=== PATIENT | male | born 1955 | race Caucasian/White ===

== ENCOUNTER 2021-01-02 12:29 | Inpatient (IN) | payer OTHER ==
[2021-01-02] MEDS ORDERED: SODIUM CHLORIDE 0.9% 500 ML INFUS.BAG IV ONE (13:02)
[2021-01-02] MEDS ORDERED: FOLIC ACID 1 MG TABLET (FP) PO ONE (13:03)
[2021-01-02] MEDS ORDERED: THIAMINE HCL 200 MG/2 ML VIAL IVPB ONE (13:03)
[2021-01-02 13:42] LABS: PH,URINE 6.5 (5.0-8.0); URINE APPEARANCE CLEAR; URINE BILIRUBIN NEGATIVE (NEGATIVE); URINE COLOR YELLOW; URINE GLUCOSE (UA) NEGATIVE (NEGATIVE); URINE KETONE NEGATIVE (NEGATIVE); URINE LEUK ESTERASE NEGATIVE (NEGATIVE); URINE NITRITE NEGATIVE (NEGATIVE); URINE PROTEIN NEGATIVE (NEGATIVE); URINE UROBILINOGEN 0.2 mg/dL (0.2-1.0)
[2021-01-02] MEDS ORDERED: DALBAVANCIN HCL 1,500 MG in DEXTROSE 5%-WATER - 500 ML IVPB ONE (13:54)
[2021-01-02] MEDS ORDERED: FOLIC ACID INJECTION - 1 MG, THIAMINE HCL 100 MG, MULTIVIT INJECTION ADULT 10 ML in SOD... IVPB ONE (13:54)
[2021-01-02 14:01] LABS: BASO % 0.5 % (0-2.0); EOS % 1.3 % (0-4.5); HEMOGLOBIN 13.6 GM/dL (11.7-16.9); LYMPH % 14.2 % (8-40); MCH 28.3 pg (25.7-33.7); MEAN CELL VOLUME 83.2 fl (80-96); MEAN PLT VOLUME 6.7 fl (7.5-11.1); MONO % 5.9 % (3.8-10.2); NEUT % 78.1 % (42.8-82.8); PLATELET COUNT 237 K/MM3 (134-434); RBC 4.81 M/mm3 (4.00-5.60); RDW 13.8 % (11.9-15.9); WHITE BLOOD COUNT 10.2 K/mm3 (4.0-10.0)
[2021-01-02 14:09] LABS: INR 0.91 (0.83-1.09)
[2021-01-02 14:12] LABS: ACTIVATED PTT 27.6 SECONDS (25.2-36.5)
[2021-01-02 14:19] LABS: ALBUMIN 3.4 g/dl (3.4-5.0); BLOOD UREA NITROGEN 7.1 mg/dL (7-18); MAGNESIUM 2.2 mg/dL (1.8-2.4)
[2021-01-02 14:22] LABS: CREATININE 0.8 mg/dL (0.55-1.3)
[2021-01-02 14:23] LABS: BILIRUBIN,TOTAL 0.7 mg/dL (0.2-1)
[2021-01-02 14:24] LABS: TOT PROT 6.6 g/dl (6.4-8.2)
[2021-01-02] MEDS ORDERED: DALBAVANCIN HCL 500 MG VIAL (RESTRICTED TO ID ONLY) IVPB ONE (14:25)
[2021-01-02] MEDS ORDERED: HALOPERIDOL LACTATE 5 MG/ML IM ONE (15:15)
[2021-01-02] MEDS ORDERED: HALOPERIDOL LACTATE 5 MG/ML ONE (15:15)
[2021-01-02] MEDS ORDERED: chlordiazePOXIDE HCL 25 MG CAPSULE PO ONE (15:18)
[2021-01-02] MEDS ORDERED: DIPHTH,PERTUSS(ACELL),TET 0.5 ML DISP.SYRIN IM ONE (15:21)
[2021-01-02] MEDS ORDERED: chlordiazePOXIDE HCL 25 MG CAPSULE ONE ×2 (15:28→22:28)
[2021-01-02] MEDS: chlordiazePOXIDE HCL 25 MG CAPSULE PO SCH (22:35)
[2021-01-03] MEDS: chlordiazePOXIDE HCL 25 MG CAPSULE PO SCH ×4 (06:13→19:05)
[2021-01-03] MEDS ORDERED: chlordiazePOXIDE HCL 25 MG CAPSULE ONE ×3 (06:14→12:30)
[2021-01-03] MEDS: INSULIN SLIDING SCALE (NOVOLOG) 1 VIAL SQ SCH ×4 (07:20→22:53)
[2021-01-03 07:57] LABS: HEMATOCRIT 42.3 % (35.4-49); HEMOGLOBIN 14.3 GM/dL (11.7-16.9); MCH 28.5 pg (25.7-33.7); MCHC 33.9 g/dl (32.0-35.9); MEAN CELL VOLUME 84.2 fl (80-96); MEAN PLT VOLUME 7.3 fl (7.5-11.1); PLATELET COUNT 202 K/MM3 (134-434); RBC 5.03 M/mm3 (4.00-5.60); WHITE BLOOD COUNT 10.3 K/mm3 (4.0-10.0)
[2021-01-03 08:18] LABS: CHLORIDE 103 mmol/L (98-107); SODIUM 137 mmol/L (136-145)
[2021-01-03 08:22] LABS: ALBUMIN 3.4 g/dl (3.4-5.0); BLOOD UREA NITROGEN 8.5 mg/dL (7-18); GLUCOSE,RANDOM 120 mg/dL (74-106)
[2021-01-03 08:24] LABS: ANION GAP 7 MMOL/L (8-16); CALCIUM 8.3 mg/dL (8.5-10.1); CO2 28 mmol/L (21-32); MAGNESIUM 2.1 mg/dL (1.8-2.4)
[2021-01-03 08:26] LABS: BILIRUBIN,TOTAL 1.1 mg/dL (0.2-1); CREATININE 0.8 mg/dL (0.55-1.3); PHOSPHOROUS 2.9 mg/dL (2.5-4.9); SGOT/AST 32 U/L (15-37); SGPT/ALT 38 U/L (13-61); TOT PROT 6.6 g/dl (6.4-8.2)
[2021-01-03] MEDS: chlordiazePOXIDE HCL 25 MG CAPSULE PO PRN ×2 (08:26→12:30)
[2021-01-03 08:28] LABS: ALK PHOS 155 U/L (45-117)
[2021-01-03] MEDS ORDERED: buPROPion HCL 100 MG TABLET ONE (09:03)
[2021-01-03] MEDS ORDERED: FOLIC ACID 1 MG TABLET (FP) ONE (09:03)
[2021-01-03] MEDS ORDERED: ENOXAPARIN NA (PORCINE) 40 MG/0.4 ML DISP.SYRIN SQ ONE (09:04)
[2021-01-03] MEDS ORDERED: PARoxetine HCL 10 MG TABLET ONE (09:04)
[2021-01-03] MEDS ORDERED: FOLIC ACID 1 MG TABLET (FP) PO SCH (10:00)
[2021-01-03] MEDS ORDERED: ENOXAPARIN NA (PORCINE) 40 MG/0.4 ML DISP.SYRIN SQ SCH (10:00)
[2021-01-03] MEDS ORDERED: PARoxetine HCL 20 MG TABLET PO SCH (10:00)
[2021-01-03] MEDS ORDERED: PATIENT'S OWN MEDICATION (NON-FORMULARY) (Lisinopril/Hydrochlorothiazide [Lisinopril-Hctz PO SCH (12:45)
[2021-01-03] MEDS ORDERED: HYDROCHLOROTHIAZIDE 12.5 MG CAPSULE (FP) PO SCH (12:45)
[2021-01-03] MEDS ORDERED: LISINOPRIL 10 MG TABLET PO SCH (12:45)
[2021-01-03] MEDS ORDERED: HYDROCHLOROTHIAZIDE 25 MG TABLET (FP) ONE (12:52)
[2021-01-03] MEDS ORDERED: LISINOPRIL 5 MG TABLET ONE (12:53)
[2021-01-03] MEDS: THIAMINE HCL 200 MG/2 ML VIAL IVPB SCH ×3 (14:33→22:19)
[2021-01-03] MEDS ORDERED: THIAMINE HCL 200 MG/2 ML VIAL ONE (14:34)
[2021-01-03] MEDS ORDERED: chlordiazePOXIDE HCL 25 MG CAPSULE PO PRN (19:39)
[2021-01-03] MEDS: MULTIVITAMINS (DAILY MVI) TABLET (FP) PO SCH (22:19)
[2021-01-03] MEDS: ACETAMINOPHEN 325 MG TABLET (FP) PO PRN (22:20)
[2021-01-03] MEDS ORDERED: chlordiazePOXIDE HCL 25 MG CAPSULE PO SCH (23:00)
[2021-01-04] MEDS: THIAMINE HCL 200 MG/2 ML VIAL IVPB SCH ×3 (00:48→13:48)
[2021-01-04] MEDS ORDERED: chlordiazePOXIDE HCL 25 MG CAPSULE PO SCH (05:00)
[2021-01-04] MEDS: chlordiazePOXIDE HCL 25 MG CAPSULE PO SCH ×3 (05:37→17:34)
[2021-01-04] MEDS: INSULIN SLIDING SCALE (NOVOLOG) 1 VIAL SQ SCH ×3 (06:12→17:51)
[2021-01-04 07:49] VITALS: BMI 12.2
[2021-01-04 08:58] LABS: HEMATOCRIT 40.7 % (35.4-49); MCH 29.1 pg (25.7-33.7); MCHC 34.3 g/dl (32.0-35.9); MEAN CELL VOLUME 84.9 fl (80-96); MEAN PLT VOLUME 7.6 fl (7.5-11.1); PLATELET COUNT 197 K/MM3 (134-434); RDW 13.6 % (11.9-15.9); WHITE BLOOD COUNT 7.4 K/mm3 (4.0-10.0)
[2021-01-04 09:05] LABS: ALBUMIN 3.4 g/dl (3.4-5.0); CALCIUM 8.4 mg/dL (8.5-10.1); MAGNESIUM 2.1 mg/dL (1.8-2.4)
[2021-01-04 09:08] LABS: PHOSPHOROUS 3.8 mg/dL (2.5-4.9)
[2021-01-04 09:10] LABS: BILIRUBIN,TOTAL 1.4 mg/dL (0.2-1); TOT PROT 6.7 g/dl (6.4-8.2)
[2021-01-04] MEDS: MULTIVITAMINS (DAILY MVI) TABLET (FP) PO SCH (09:27)
[2021-01-04] MEDS: ACETAMINOPHEN 325 MG TABLET (FP) PO PRN ×2 (09:27→15:40)
[2021-01-04] MEDS ORDERED: ENOXAPARIN NA (PORCINE) 40 MG/0.4 ML DISP.SYRIN SQ SCH (10:00)
[2021-01-04] MEDS ORDERED: PARoxetine HCL 20 MG TABLET PO SCH (10:00)
[2021-01-04] MEDS ORDERED: HYDROCHLOROTHIAZIDE 12.5 MG CAPSULE (FP) PO SCH (10:00)
[2021-01-04] MEDS ORDERED: FOLIC ACID 1 MG TABLET (FP) PO SCH (10:00)
[2021-01-04] MEDS ORDERED: LISINOPRIL 10 MG TABLET PO SCH (10:00)
[2021-01-04 10:19] VITALS: BP 130/52; PULSE 99; TEMP 98
[2021-01-04] MEDS ORDERED: INSULIN (NOVOLOG) ASPART 100 UNITS/ML 10ML VIAL ONE (11:09)
[2021-01-05] MEDS ORDERED: chlordiazePOXIDE HCL 10 MG CAPSULE PO PRN ×2
[2021-01-05] MEDS ORDERED: chlordiazePOXIDE HCL 10 MG CAPSULE PO SCH ×2 (05:00)
[2021-01-06] MEDS ORDERED: chlordiazePOXIDE HCL 10 MG CAPSULE PO SCH ×2 (05:00)
[2021-01-07] MEDS ORDERED: chlordiazePOXIDE HCL 10 MG CAPSULE PO ONE ×2 (05:00)
== END 2021-01-04 18:23 | disposition other institution (70) | DRG 775 ==
LOC: JER 12:29 → JERBED 20:07 → OBSVTOIN 20:07 → J5S 01-03 18:23
PROVIDERS: ADMIT Hospitalist; ATTEND Internal Medicine
DX: F10.220 Alcohol dependence with intoxication, uncomplicated (principal); F10.230 Alcohol dependence with withdrawal, uncomplicated; I10 Essential (primary) hypertension; F32.9 Major depressive disorder, single episode, unspecified; J45.909 Unspecified asthma, uncomplicated; B19.20 Unspecified viral hepatitis C without hepatic coma; R29.6 Repeated falls; R07.9 Chest pain, unspecified; E78.5 Hyperlipidemia, unspecified; N32.89 Other specified disorders of bladder; J33.9 Nasal polyp, unspecified; F41.8 Other specified anxiety disorders; L30.9 Dermatitis, unspecified
CPT/HCPCS: 36415; 70450-TC; 71260-TC; 72125-TC; 72128-TC; 72131-TC; 73110-TC-LT-FY; 73110-TC-RT-FY; 73130-TC-LT-FY; 73130-TC-RT-FY; 74177-TC; 80053; 81003; 82962; 83036; 83735; 84100; 84425; 84484; 85025; 85027; 85610; 85730; 87040; 87086; 93005; 93010; 99285-25; C9803; J0875; Q9967; U0003; U0005

== ENCOUNTER 2021-01-04 18:52 | Inpatient (IN) | payer OTHER ==
[2021-01-04] MEDS ORDERED: MAGNESIUM CITRATE 300 ML BOTTLE PO PRN (20:12)
[2021-01-04] MEDS ORDERED: P-EPHED 60MG/TRIPROLIDI 2.5MG TABLET PO PRN (20:12)
[2021-01-04] MEDS ORDERED: DICYCLOMINE HCL 10 MG CAPSULE PO PRN (20:12)
[2021-01-04] MEDS ORDERED: guaiFENesin 200 MG/10 ML 10 ML UNIT-DOSE CUPS PO PRN (20:12)
[2021-01-04] MEDS ORDERED: chlordiazePOXIDE HCL 25 MG CAPSULE PO PRN (20:12)
[2021-01-04] MEDS ORDERED: MENTHOL/PHENOL 1 EACH UD MM PRN (20:12)
[2021-01-04] MEDS ORDERED: ONDANSETRON *ODT* 4 MG TABLET SL PRN (20:12)
[2021-01-04] MEDS ORDERED: chlordiazePOXIDE HCL 25 MG CAPSULE PO ONE (20:12)
[2021-01-04] MEDS ORDERED: MAGNESIUM HYDROX 2400MG/30ML ORAL SUSPENSION 30 ML CUP PO PRN (20:12)
[2021-01-04] MEDS ORDERED: BISMUTH SUBSALICYLATE 524 MG/30 ML UD PO PRN (20:12)
[2021-01-04] MEDS ORDERED: hydrOXYzine PAMOATE 25 MG CAPSULE (FP) PO PRN (20:12)
[2021-01-04] MEDS ORDERED: MAG HYDROX/AL HYDROX/SIMETH 30 ML UNIT-DOSE CUP PO PRN (20:12)
[2021-01-04] MEDS ORDERED: ACETAMINOPHEN 325 MG TABLET (FP) PO PRN (20:12)
[2021-01-04] MEDS ORDERED: ACETAMINOPHEN 325 MG TABLET (FP) ONE (20:36)
[2021-01-04] MEDS ORDERED: chlordiazePOXIDE HCL 25 MG CAPSULE ONE (20:36)
[2021-01-04] MEDS ORDERED: ALBUTEROL SO4 HFA INHALER IH PRN (20:39)
[2021-01-04 21:17] VITALS: BMI 25.7
[2021-01-04] MEDS: chlordiazePOXIDE HCL 25 MG CAPSULE PO SCH (22:22)
[2021-01-04] MEDS: THIAMINE HCL 100 MG TABLET (FP) PO SCH (22:22)
[2021-01-04] MEDS: MELATONIN 5 MG TABLETS PO SCH (22:23)
[2021-01-04] MEDS: ACETAMINOPHEN 325 MG TABLET (FP) PO PRN (22:24)
[2021-01-05] MEDS: chlordiazePOXIDE HCL 25 MG CAPSULE PO SCH ×3 (06:38→17:50)
[2021-01-05] MEDS ORDERED: PATIENT'S OWN MEDICATION (NON-FORMULARY) (Lisinopril/Hydrochlorothiazide [Lisinopril-Hctz PO SCH (10:00)
[2021-01-05] MEDS: HYDROCHLOROTHIAZIDE 12.5 MG CAPSULE (FP) PO SCH (10:07)
[2021-01-05] MEDS: PRENATAL VITAMINS W/ FOLIC ACID TABLET (FP) PO SCH (11:07)
[2021-01-05] MEDS: LISINOPRIL 10 MG TABLET PO SCH (11:07)
[2021-01-05] MEDS: PANTOPRAZOLE 40 MG TABLET PO SCH (11:07)
[2021-01-05] MEDS: METHOCARBAMOL 500 MG TABLET PO PRN (13:08)
[2021-01-05] MEDS: ACETAMINOPHEN 325 MG TABLET (FP) PO PRN (17:54)
[2021-01-05] MEDS: MELATONIN 5 MG TABLETS PO SCH (22:35)
[2021-01-05] MEDS: chlordiazePOXIDE HCL 10 MG CAPSULE PO SCH (22:35)
[2021-01-05] MEDS: THIAMINE HCL 100 MG TABLET (FP) PO SCH (22:35)
[2021-01-06] MEDS: chlordiazePOXIDE HCL 10 MG CAPSULE PO SCH ×3 (05:53→17:07)
[2021-01-06] MEDS: ACETAMINOPHEN 325 MG TABLET (FP) PO PRN ×3 (09:43→23:10)
[2021-01-06] MEDS: PANTOPRAZOLE 40 MG TABLET PO SCH (10:35)
[2021-01-06] MEDS: PRENATAL VITAMINS W/ FOLIC ACID TABLET (FP) PO SCH (10:41)
[2021-01-06] MEDS: HYDROCHLOROTHIAZIDE 12.5 MG CAPSULE (FP) PO SCH (10:45)
[2021-01-06] MEDS: LISINOPRIL 10 MG TABLET PO SCH (10:45)
[2021-01-06] MEDS: THIAMINE HCL 100 MG TABLET (FP) PO SCH (22:25)
[2021-01-06] MEDS: MELATONIN 5 MG TABLETS PO SCH (22:25)
[2021-01-07] MEDS: chlordiazePOXIDE HCL 10 MG CAPSULE PO SCH ×2 (06:13→18:07)
[2021-01-07] MEDS: ACETAMINOPHEN 325 MG TABLET (FP) PO PRN (07:42)
[2021-01-07] MEDS: PANTOPRAZOLE 40 MG TABLET PO SCH (10:20)
[2021-01-07] MEDS: LISINOPRIL 10 MG TABLET PO SCH (10:20)
[2021-01-07] MEDS: HYDROCHLOROTHIAZIDE 12.5 MG CAPSULE (FP) PO SCH (10:20)
[2021-01-07] MEDS: PRENATAL VITAMINS W/ FOLIC ACID TABLET (FP) PO SCH (10:20)
[2021-01-07] MEDS: chlordiazePOXIDE HCL 10 MG CAPSULE PO PRN ×2 (12:39→22:15)
[2021-01-07] MEDS: IBUPROFEN 400 MG TABLET (FP) PO PRN (18:07)
[2021-01-07] MEDS: METHOCARBAMOL 500 MG TABLET PO PRN (18:07)
[2021-01-07] MEDS: THIAMINE HCL 100 MG TABLET (FP) PO SCH (22:16)
[2021-01-07] MEDS: MELATONIN 5 MG TABLETS PO SCH (22:16)
[2021-01-08] MEDS ORDERED: chlordiazePOXIDE HCL 10 MG CAPSULE PO ONE (05:00)
[2021-01-08] MEDS ORDERED: MASKS NR ONE (05:56)
[2021-01-08] MEDS: METHOCARBAMOL 500 MG TABLET PO PRN (08:55)
[2021-01-08] MEDS: IBUPROFEN 400 MG TABLET (FP) PO PRN (08:55)
[2021-01-08] MEDS: PANTOPRAZOLE 40 MG TABLET PO SCH (09:51)
[2021-01-08] MEDS: LISINOPRIL 10 MG TABLET PO SCH (09:52)
[2021-01-08] MEDS: HYDROCHLOROTHIAZIDE 12.5 MG CAPSULE (FP) PO SCH (09:52)
[2021-01-08] MEDS: PRENATAL VITAMINS W/ FOLIC ACID TABLET (FP) PO SCH (09:52)
[2021-01-08 09:53] VITALS: BP 147/74; PULSE 107; TEMP 98.1
== END 2021-01-08 12:42 | disposition other institution (70) | DRG 775 ==
LOC: YASAS 18:52 → Y6N 21:40
PROVIDERS: ADMIT Allergy & Immunology; ATTEND Allergy & Immunology
PROC: HZ2ZZZZ Detoxification Services for Substance Abuse Treatment (ICD-10-PCS; principal; 2021-01-04)
DX: F10.230 Alcohol dependence with withdrawal, uncomplicated (principal); F10.282 Alcohol dependence with alcohol-induced sleep disorder; F10.24 Alcohol dependence with alcohol-induced mood disorder; F31.81 Bipolar II disorder; D64.9 Anemia, unspecified; E11.9 Type 2 diabetes mellitus without complications; I10 Essential (primary) hypertension; J45.20 Mild intermittent asthma, uncomplicated; L30.9 Dermatitis, unspecified; R25.3 Fasciculation; M25.511 Pain in right shoulder; Z91.81 History of falling
CPT/HCPCS: 36415; 86780; 93005; 93010; C9803; U0003; U0005

== ENCOUNTER 2021-01-08 11:18 | Inpatient (IN) | payer OTHER ==
[2021-01-08] MEDS ORDERED: MAG HYDROX/AL HYDROX/SIMETH 30 ML UNIT-DOSE CUP PO PRN (14:58)
[2021-01-08] MEDS ORDERED: ACETAMINOPHEN 325 MG TABLET (FP) PO PRN (14:58)
[2021-01-08] MEDS ORDERED: MAGNESIUM HYDROX 2400MG/30ML ORAL SUSPENSION 30 ML CUP PO PRN (14:58)
[2021-01-08] MEDS ORDERED: MAGNESIUM CITRATE 300 ML BOTTLE PO PRN (14:58)
[2021-01-08] MEDS ORDERED: LOPERAMIDE HCL 2 MG CAPSULE PO PRN (14:58)
[2021-01-08] MEDS ORDERED: NICOTINE POLACRILEX 2 MG GUM BUC PRN (14:58)
[2021-01-08] MEDS ORDERED: P-EPHED 60MG/TRIPROLIDI 2.5MG TABLET PO PRN (14:58)
[2021-01-08] MEDS ORDERED: guaiFENesin 200 MG/10 ML 10 ML UNIT-DOSE CUPS PO PRN (14:58)
[2021-01-08] MEDS ORDERED: MENTHOL/PHENOL 1 EACH UD MM PRN (14:58)
[2021-01-08] MEDS ORDERED: hydrOXYzine PAMOATE 25 MG CAPSULE (FP) PO PRN (14:58)
[2021-01-08] MEDS ORDERED: IBUPROFEN 400 MG TABLET (FP) PO PRN (14:58)
[2021-01-08] MEDS ORDERED: ALBUTEROL SO4 HFA INHALER IH PRN (15:07)
[2021-01-08] MEDS: METHOCARBAMOL 500 MG TABLET PO SCH ×2 (17:19→21:23)
[2021-01-08] MEDS: THIAMINE HCL 100 MG TABLET (FP) PO SCH (21:22)
[2021-01-08] MEDS ORDERED: MELATONIN 5 MG TABLETS PO SCH (22:00)
[2021-01-09] MEDS: PANTOPRAZOLE 40 MG TABLET PO SCH (09:49)
[2021-01-09] MEDS: PRENATAL VITAMINS W/ FOLIC ACID TABLET (FP) PO SCH (09:49)
[2021-01-09] MEDS: METHOCARBAMOL 500 MG TABLET PO SCH ×4 (09:49→21:29)
[2021-01-09] MEDS: LISINOPRIL 10 MG TABLET PO SCH (09:49)
[2021-01-09] MEDS: HYDROCHLOROTHIAZIDE 12.5 MG CAPSULE (FP) PO SCH (09:49)
[2021-01-09] MEDS ORDERED: NICOTINE 7 MG/24 HOURS TOPICAL PATCH TD SCH (10:00)
[2021-01-09] MEDS ORDERED: FLU VACCINE (FLULAVAL) PF 60 MCG/0.5 ML SYRINGE 2020-2021 IM ONE (12:00)
[2021-01-09] MEDS: THIAMINE HCL 100 MG TABLET (FP) PO SCH (21:29)
[2021-01-09] MEDS: MELATONIN 5 MG TABLETS PO PRN (21:29)
[2021-01-10 07:07] VITALS: TEMP 97.7
[2021-01-10] MEDS: PRENATAL VITAMINS W/ FOLIC ACID TABLET (FP) PO SCH (11:32)
[2021-01-10] MEDS: HYDROCHLOROTHIAZIDE 12.5 MG CAPSULE (FP) PO SCH (11:32)
[2021-01-10] MEDS: METHOCARBAMOL 500 MG TABLET PO SCH ×4 (11:33→21:31)
[2021-01-10] MEDS: LISINOPRIL 10 MG TABLET PO SCH (11:33)
[2021-01-10] MEDS: PANTOPRAZOLE 40 MG TABLET PO SCH (11:33)
[2021-01-10] MEDS ORDERED: PNEUMOCOCCAL 23 VACCINE 0.5 ML VIAL IM ONE (12:00)
[2021-01-10] MEDS ORDERED: PNEUMOC 13-VAL CONJ-DIP CRM/PF 0.5 ML DISP.SYRIN IM ONE (14:40)
[2021-01-10] MEDS: MELATONIN 5 MG TABLETS PO PRN (20:37)
[2021-01-10] MEDS: THIAMINE HCL 100 MG TABLET (FP) PO SCH (21:31)
[2021-01-11 09:06] VITALS: BP 150/84; PULSE 102
[2021-01-12 12:10] LABS: SARS-CoV-2 NAA Not Detected (Not Detected)
== END 2021-01-11 09:46 | disposition home or self-care (01) | DRG 772 ==
LOC: YASAS 11:18 → Y3W 11:19
PROVIDERS: ADMIT Allergy & Immunology; ATTEND Allergy & Immunology
PROC: HZ42ZZZ Group Counseling for Substance Abuse Treatment, Cognitive-Behavioral (ICD-10-PCS; principal; 2021-01-08)
DX: F10.20 Alcohol dependence, uncomplicated (principal); F10.282 Alcohol dependence with alcohol-induced sleep disorder; F32.9 Major depressive disorder, single episode, unspecified; I10 Essential (primary) hypertension; J45.20 Mild intermittent asthma, uncomplicated; K21.9 Gastro-esophageal reflux disease without esophagitis; L30.9 Dermatitis, unspecified; E11.9 Type 2 diabetes mellitus without complications; Z91.81 History of falling; Z86.2 Personal history of diseases of the blood and blood-forming organs and certain disorders involving the immune mechanism
CPT/HCPCS: 90732; C9803; G0008; G0009; Q2036; U0003; U0005

== ENCOUNTER 2021-03-20 12:53 | Inpatient (IN) | payer OTHER ==
[2021-03-20 14:06] VITALS: BMI 25.2
[2021-03-20] MEDS ORDERED: ONDANSETRON *ODT* 4 MG TABLET SL PRN (15:49)
[2021-03-20] MEDS ORDERED: ACETAMINOPHEN 325 MG TABLET (FP) PO PRN (15:49)
[2021-03-20] MEDS ORDERED: BISMUTH SUBSALICYLATE 524 MG/30 ML PO PRN (15:49)
[2021-03-20] MEDS ORDERED: MAG HYDROX/AL HYDROX/SIMETH 30 ML UNIT-DOSE CUP PO PRN (15:49)
[2021-03-20] MEDS ORDERED: MAGNESIUM HYDROX 2400MG/30ML ORAL SUSPENSION 30 ML CUP PO PRN (15:49)
[2021-03-20] MEDS ORDERED: MENTHOL/PHENOL 1 EACH UD MM PRN (15:49)
[2021-03-20] MEDS ORDERED: MAGNESIUM CITRATE 300 ML BOTTLE PO PRN (15:49)
[2021-03-20] MEDS ORDERED: LORazepam 2 MG TABLET ONE ×2 (18:05→23:11)
[2021-03-20] MEDS ORDERED: hydrOXYzine PAMOATE 25 MG CAPSULE (FP) PO ONE (18:06)
[2021-03-20] MEDS: hydrOXYzine PAMOATE 25 MG CAPSULE (FP) PO SCH ×2 (18:07→23:12)
[2021-03-20] MEDS: LORazepam 2 MG TABLET PO SCH ×2 (18:07→23:12)
[2021-03-20] MEDS: MELATONIN 5 MG TABLETS PO SCH (23:12)
[2021-03-20] MEDS: THIAMINE HCL 100 MG TABLET (FP) PO SCH (23:13)
[2021-03-21] MEDS ORDERED: hydrOXYzine PAMOATE 25 MG CAPSULE (FP) PO ONE (05:57)
[2021-03-21] MEDS ORDERED: LORazepam 2 MG TABLET ONE (05:57)
[2021-03-21] MEDS: LORazepam 2 MG TABLET PO SCH ×4 (06:30→22:11)
[2021-03-21] MEDS: hydrOXYzine PAMOATE 25 MG CAPSULE (FP) PO SCH ×5 (06:30→22:11)
[2021-03-21] MEDS: PRENATAL VITAMINS W/ FOLIC ACID TABLET (FP) PO SCH (14:36)
[2021-03-21] MEDS: METHOCARBAMOL 500 MG TABLET PO PRN (17:37)
[2021-03-21] MEDS: IBUPROFEN 400 MG TABLET (FP) PO PRN (20:38)
[2021-03-21] MEDS: MELATONIN 5 MG TABLETS PO SCH (22:11)
[2021-03-21] MEDS: THIAMINE HCL 100 MG TABLET (FP) PO SCH (22:11)
[2021-03-22] MEDS: LORazepam 1 MG TABLET PO PRN ×3 (03:34→20:19)
[2021-03-22] MEDS: METHOCARBAMOL 500 MG TABLET PO PRN ×3 (03:35→18:02)
[2021-03-22] MEDS: ACETAMINOPHEN 325 MG TABLET (FP) PO PRN ×2 (03:36→15:15)
[2021-03-22] MEDS: LORazepam 1 MG TABLET PO SCH ×4 (06:11→22:55)
[2021-03-22] MEDS: hydrOXYzine PAMOATE 25 MG CAPSULE (FP) PO SCH ×5 (06:11→22:55)
[2021-03-22 10:10] LABS: HEMATOCRIT 42.5 % (35.4-49); HEMOGLOBIN 13.9 GM/dL (11.7-16.9); MCH 28.7 pg (25.7-33.7); MCHC 32.8 g/dl (32.0-35.9); MEAN CELL VOLUME 87.5 fl (80-96); MEAN PLT VOLUME 7.5 fl (7.5-11.1); PLATELET COUNT 306 10^3/uL (134-434); RBC 4.85 M/mm3 (4.00-5.60); RDW 16.1 % (11.9-15.9); WHITE BLOOD COUNT 6.7 K/mm3 (4.0-10.0)
[2021-03-22] MEDS: PRENATAL VITAMINS W/ FOLIC ACID TABLET (FP) PO SCH (10:21)
[2021-03-22] MEDS: IBUPROFEN 400 MG TABLET (FP) PO PRN ×2 (10:22→19:59)
[2021-03-22 10:24] LABS: BLOOD UREA NITROGEN 7.8 mg/dL (7-18)
[2021-03-22 10:28] LABS: ALBUMIN 3.3 g/dl (3.4-5.0); CREATININE 0.8 mg/dL (0.55-1.3)
[2021-03-22 10:30] LABS: BILIRUBIN,TOTAL 0.6 mg/dL (0.2-1); TOT PROT 6.5 g/dl (6.4-8.2)
[2021-03-22] MEDS ORDERED: MASKS NR ONE (18:48)
[2021-03-22] MEDS ORDERED: MELATONIN 5 MG TABLETS PO PRN (21:51)
[2021-03-22] MEDS: THIAMINE HCL 100 MG TABLET (FP) PO SCH (22:55)
[2021-03-22] MEDS: MELATONIN 5 MG TABLETS PO ONE (22:56)
[2021-03-22] MEDS: MELATONIN 5 MG TABLETS PO SCH (22:57)
[2021-03-23] MEDS ORDERED: LORazepam 0.5 MG TABLET PO PRN
[2021-03-23] MEDS: LORazepam 0.5 MG TABLET PO SCH ×4 (05:24→23:03)
[2021-03-23] MEDS: hydrOXYzine PAMOATE 25 MG CAPSULE (FP) PO SCH ×5 (05:24→22:15)
[2021-03-23] MEDS: PRENATAL VITAMINS W/ FOLIC ACID TABLET (FP) PO SCH (10:24)
[2021-03-23] MEDS ORDERED: ALBUTEROL SO4 HFA INHALER IH PRN (12:52)
[2021-03-23] MEDS: FAMOTIDINE 20 MG TABLET PO SCH ×2 (13:20→22:15)
[2021-03-23] MEDS: HYDROCHLOROTHIAZIDE 12.5 MG CAPSULE (FP) PO SCH (13:20)
[2021-03-23] MEDS: LISINOPRIL 10 MG TABLET PO SCH (13:20)
[2021-03-23] MEDS: ACETAMINOPHEN 325 MG TABLET (FP) PO PRN ×2 (15:27→23:41)
[2021-03-23] MEDS: METHOCARBAMOL 500 MG TABLET PO PRN (15:28)
[2021-03-23] MEDS: THIAMINE HCL 100 MG TABLET (FP) PO SCH (22:14)
[2021-03-23] MEDS: MELATONIN 5 MG TABLETS PO SCH (23:03)
[2021-03-24] MEDS ORDERED: LORazepam 0.5 MG TABLET PO ONE (05:00)
[2021-03-24] MEDS: hydrOXYzine PAMOATE 25 MG CAPSULE (FP) PO SCH ×5 (05:47→22:09)
[2021-03-24] MEDS: ACETAMINOPHEN 325 MG TABLET (FP) PO PRN (07:03)
[2021-03-24] MEDS ORDERED: LORazepam 2 MG TABLET PO ONE (08:47)
[2021-03-24] MEDS: LISINOPRIL 10 MG TABLET PO SCH (10:20)
[2021-03-24] MEDS: HYDROCHLOROTHIAZIDE 12.5 MG CAPSULE (FP) PO SCH (10:20)
[2021-03-24] MEDS: FAMOTIDINE 20 MG TABLET PO SCH ×2 (10:20→22:09)
[2021-03-24] MEDS: PRENATAL VITAMINS W/ FOLIC ACID TABLET (FP) PO SCH (10:20)
[2021-03-24] MEDS: LACTULOSE 20 GM/30 ML UDC (FOR ORAL USE ONLY) PO SCH ×2 (14:00→22:09)
[2021-03-24] MEDS: MELATONIN 5 MG TABLETS PO SCH (22:09)
[2021-03-24] MEDS: THIAMINE HCL 100 MG TABLET (FP) PO SCH (22:09)
[2021-03-24] MEDS: IBUPROFEN 400 MG TABLET (FP) PO PRN (22:13)
[2021-03-25] MEDS: hydrOXYzine PAMOATE 25 MG CAPSULE (FP) PO SCH (05:41)
[2021-03-25] MEDS: LACTULOSE 20 GM/30 ML UDC (FOR ORAL USE ONLY) PO SCH (05:41)
[2021-03-25 06:31] VITALS: TEMP 96.9
[2021-03-25] MEDS ORDERED: hydrOXYzine PAMOATE 25 MG CAPSULE (FP) PO PRN (07:20)
[2021-03-25] MEDS: FAMOTIDINE 20 MG TABLET PO SCH (10:15)
[2021-03-25] MEDS: LISINOPRIL 10 MG TABLET PO SCH (10:15)
[2021-03-25] MEDS: HYDROCHLOROTHIAZIDE 12.5 MG CAPSULE (FP) PO SCH (10:16)
[2021-03-25] MEDS: PRENATAL VITAMINS W/ FOLIC ACID TABLET (FP) PO SCH (10:16)
[2021-03-25 11:46] VITALS: BP 121/84; PULSE 122
== END 2021-03-25 12:04 | disposition other institution (70) | DRG 775 ==
LOC: YASAS 12:53 → Y3N 03-21 11:28
PROVIDERS: ADMIT Allergy & Immunology; ATTEND Allergy & Immunology
PROC: HZ2ZZZZ Detoxification Services for Substance Abuse Treatment (ICD-10-PCS; principal; 2021-03-21)
DX: F10.230 Alcohol dependence with withdrawal, uncomplicated (principal); F41.8 Other specified anxiety disorders; F03.90 Unspecified dementia, unspecified severity, without behavioral disturbance, psychotic disturbance, mood disturbance, and anxiety; I10 Essential (primary) hypertension; J45.20 Mild intermittent asthma, uncomplicated; K21.9 Gastro-esophageal reflux disease without esophagitis; Z86.69 Personal history of other diseases of the nervous system and sense organs; Z86.39 Personal history of other endocrine, nutritional and metabolic disease
CPT/HCPCS: 36415; 80053; 82140; 85027; 86780; 93005; 93010; C9803; U0003; U0005

== ENCOUNTER 2021-03-25 12:08 | Inpatient (IN) | payer OTHER ==
[2021-03-25] MEDS ORDERED: guaiFENesin 200 MG/10 ML 10 ML UNIT-DOSE CUPS PO PRN (13:08)
[2021-03-25] MEDS ORDERED: MAGNESIUM CITRATE 300 ML BOTTLE PO PRN (13:08)
[2021-03-25] MEDS ORDERED: P-EPHED 60MG/TRIPROLIDI 2.5MG TABLET PO PRN (13:08)
[2021-03-25] MEDS ORDERED: LOPERAMIDE HCL 2 MG CAPSULE PO PRN (13:08)
[2021-03-25] MEDS ORDERED: ACETAMINOPHEN 325 MG TABLET (FP) PO PRN (13:08)
[2021-03-25] MEDS ORDERED: MENTHOL/PHENOL 1 EACH UD MM PRN (13:08)
[2021-03-25] MEDS ORDERED: MAG HYDROX/AL HYDROX/SIMETH 30 ML UNIT-DOSE CUP PO PRN (13:08)
[2021-03-25] MEDS ORDERED: MAGNESIUM HYDROX 2400MG/30ML ORAL SUSPENSION 30 ML CUP PO PRN (13:08)
[2021-03-25] MEDS: METHOCARBAMOL 500 MG TABLET PO SCH ×3 (15:16→22:41)
[2021-03-25] MEDS: LACTULOSE 20 GM/30 ML UDC (FOR ORAL USE ONLY) PO SCH ×2 (15:17→22:40)
[2021-03-25] MEDS: FAMOTIDINE 20 MG TABLET PO SCH (22:41)
[2021-03-25] MEDS: THIAMINE HCL 100 MG TABLET (FP) PO SCH (22:41)
[2021-03-25] MEDS: MELATONIN 5 MG TABLETS PO SCH (22:41)
[2021-03-26] MEDS: LACTULOSE 20 GM/30 ML UDC (FOR ORAL USE ONLY) PO SCH ×3 (06:33→23:20)
[2021-03-26] MEDS: FOLIC ACID 1 MG TABLET (FP) PO SCH (09:37)
[2021-03-26] MEDS: HYDROCHLOROTHIAZIDE 12.5 MG CAPSULE (FP) PO SCH (09:37)
[2021-03-26] MEDS: PRENATAL VITAMINS W/ FOLIC ACID TABLET (FP) PO SCH (09:37)
[2021-03-26] MEDS: LISINOPRIL 10 MG TABLET PO SCH (09:37)
[2021-03-26] MEDS: FAMOTIDINE 20 MG TABLET PO SCH ×2 (09:37→23:20)
[2021-03-26] MEDS: METHOCARBAMOL 500 MG TABLET PO SCH ×4 (09:37→23:20)
[2021-03-26] MEDS: MELATONIN 5 MG TABLETS PO SCH (23:20)
[2021-03-26] MEDS: THIAMINE HCL 100 MG TABLET (FP) PO SCH (23:20)
[2021-03-27] MEDS: LACTULOSE 20 GM/30 ML UDC (FOR ORAL USE ONLY) PO SCH ×3 (06:15→21:26)
[2021-03-27] MEDS: FAMOTIDINE 20 MG TABLET PO SCH ×2 (09:38→21:26)
[2021-03-27] MEDS: PRENATAL VITAMINS W/ FOLIC ACID TABLET (FP) PO SCH (09:38)
[2021-03-27] MEDS: METHOCARBAMOL 500 MG TABLET PO SCH ×4 (09:38→21:27)
[2021-03-27] MEDS: FOLIC ACID 1 MG TABLET (FP) PO SCH (09:38)
[2021-03-27] MEDS: LISINOPRIL 10 MG TABLET PO SCH (09:38)
[2021-03-27] MEDS: HYDROCHLOROTHIAZIDE 12.5 MG CAPSULE (FP) PO SCH (09:38)
[2021-03-27] MEDS: IBUPROFEN 400 MG TABLET (FP) PO PRN (13:07)
[2021-03-27] MEDS: THIAMINE HCL 100 MG TABLET (FP) PO SCH (21:27)
[2021-03-27] MEDS: MELATONIN 5 MG TABLETS PO SCH (21:27)
[2021-03-28] MEDS: LACTULOSE 20 GM/30 ML UDC (FOR ORAL USE ONLY) PO SCH ×3 (06:12→21:52)
[2021-03-28] MEDS: FOLIC ACID 1 MG TABLET (FP) PO SCH (09:38)
[2021-03-28] MEDS: FAMOTIDINE 20 MG TABLET PO SCH (09:38)
[2021-03-28] MEDS: PRENATAL VITAMINS W/ FOLIC ACID TABLET (FP) PO SCH (09:38)
[2021-03-28] MEDS: LISINOPRIL 10 MG TABLET PO SCH (09:39)
[2021-03-28] MEDS: HYDROCHLOROTHIAZIDE 12.5 MG CAPSULE (FP) PO SCH (09:39)
[2021-03-28] MEDS: METHOCARBAMOL 500 MG TABLET PO SCH (09:39)
[2021-03-28] MEDS ORDERED: METHOCARBAMOL 500 MG TABLET PO PRN (12:33)
[2021-03-28] MEDS: IBUPROFEN 400 MG TABLET (FP) PO PRN (19:41)
[2021-03-28] MEDS: MELATONIN 5 MG TABLETS PO SCH (21:52)
[2021-03-28] MEDS: THIAMINE HCL 100 MG TABLET (FP) PO SCH (21:53)
[2021-03-29] MEDS: LACTULOSE 20 GM/30 ML UDC (FOR ORAL USE ONLY) PO SCH ×3 (06:53→21:55)
[2021-03-29] MEDS: PRENATAL VITAMINS W/ FOLIC ACID TABLET (FP) PO SCH (09:24)
[2021-03-29] MEDS: FOLIC ACID 1 MG TABLET (FP) PO SCH (09:24)
[2021-03-29] MEDS: LISINOPRIL 10 MG TABLET PO SCH (09:24)
[2021-03-29] MEDS: HYDROCHLOROTHIAZIDE 12.5 MG CAPSULE (FP) PO SCH (09:24)
[2021-03-29] MEDS: THIAMINE HCL 100 MG TABLET (FP) PO SCH (21:55)
[2021-03-29] MEDS: MELATONIN 5 MG TABLETS PO SCH (21:55)
[2021-03-29] MEDS: IBUPROFEN 400 MG TABLET (FP) PO PRN (21:56)
[2021-03-30] MEDS: LACTULOSE 20 GM/30 ML UDC (FOR ORAL USE ONLY) PO SCH ×3 (06:35→21:03)
[2021-03-30] MEDS: PRENATAL VITAMINS W/ FOLIC ACID TABLET (FP) PO SCH (09:42)
[2021-03-30] MEDS: LISINOPRIL 10 MG TABLET PO SCH (09:43)
[2021-03-30] MEDS: HYDROCHLOROTHIAZIDE 12.5 MG CAPSULE (FP) PO SCH (09:43)
[2021-03-30] MEDS: FOLIC ACID 1 MG TABLET (FP) PO SCH (09:43)
[2021-03-30] MEDS: IBUPROFEN 400 MG TABLET (FP) PO PRN (19:21)
[2021-03-30] MEDS: THIAMINE HCL 100 MG TABLET (FP) PO SCH (21:03)
[2021-03-30] MEDS: MELATONIN 5 MG TABLETS PO SCH (21:03)
[2021-03-31] MEDS: LACTULOSE 20 GM/30 ML UDC (FOR ORAL USE ONLY) PO SCH ×3 (06:41→21:34)
[2021-03-31] MEDS: FOLIC ACID 1 MG TABLET (FP) PO SCH (09:48)
[2021-03-31] MEDS: LISINOPRIL 10 MG TABLET PO SCH (09:48)
[2021-03-31] MEDS: HYDROCHLOROTHIAZIDE 12.5 MG CAPSULE (FP) PO SCH (09:48)
[2021-03-31] MEDS: PRENATAL VITAMINS W/ FOLIC ACID TABLET (FP) PO SCH (09:48)
[2021-03-31] MEDS: IBUPROFEN 600 MG TABLET (FP) PO PRN (13:15)
[2021-03-31] MEDS: MELATONIN 5 MG TABLETS PO SCH (21:34)
[2021-03-31] MEDS: THIAMINE HCL 100 MG TABLET (FP) PO SCH (21:34)
[2021-04-01] MEDS: LACTULOSE 20 GM/30 ML UDC (FOR ORAL USE ONLY) PO SCH (07:56)
[2021-04-01] MEDS: LISINOPRIL 10 MG TABLET PO SCH (10:05)
[2021-04-01] MEDS: PRENATAL VITAMINS W/ FOLIC ACID TABLET (FP) PO SCH (10:05)
[2021-04-01] MEDS: HYDROCHLOROTHIAZIDE 12.5 MG CAPSULE (FP) PO SCH (10:05)
[2021-04-01] MEDS: FOLIC ACID 1 MG TABLET (FP) PO SCH (10:05)
[2021-04-01] MEDS: THIAMINE HCL 100 MG TABLET (FP) PO SCH (21:59)
[2021-04-01] MEDS: MELATONIN 5 MG TABLETS PO SCH (21:59)
[2021-04-02] MEDS: PRENATAL VITAMINS W/ FOLIC ACID TABLET (FP) PO SCH (10:10)
[2021-04-02] MEDS: HYDROCHLOROTHIAZIDE 12.5 MG CAPSULE (FP) PO SCH (10:11)
[2021-04-02] MEDS: LISINOPRIL 10 MG TABLET PO SCH (10:11)
[2021-04-02] MEDS: FOLIC ACID 1 MG TABLET (FP) PO SCH (10:11)
[2021-04-02] MEDS: MELATONIN 5 MG TABLETS PO SCH (21:46)
[2021-04-02] MEDS: THIAMINE HCL 100 MG TABLET (FP) PO SCH (21:46)
[2021-04-03] MEDS: LISINOPRIL 10 MG TABLET PO SCH (09:44)
[2021-04-03] MEDS: PRENATAL VITAMINS W/ FOLIC ACID TABLET (FP) PO SCH (09:44)
[2021-04-03] MEDS: HYDROCHLOROTHIAZIDE 12.5 MG CAPSULE (FP) PO SCH (09:44)
[2021-04-03] MEDS: FOLIC ACID 1 MG TABLET (FP) PO SCH (09:44)
[2021-04-03] MEDS: THIAMINE HCL 100 MG TABLET (FP) PO SCH (21:27)
[2021-04-03] MEDS: MELATONIN 5 MG TABLETS PO SCH (21:27)
[2021-04-04] MEDS: PRENATAL VITAMINS W/ FOLIC ACID TABLET (FP) PO SCH (09:41)
[2021-04-04] MEDS: LISINOPRIL 10 MG TABLET PO SCH (09:41)
[2021-04-04] MEDS: HYDROCHLOROTHIAZIDE 12.5 MG CAPSULE (FP) PO SCH (09:41)
[2021-04-04] MEDS: FOLIC ACID 1 MG TABLET (FP) PO SCH (09:41)
[2021-04-04] MEDS: THIAMINE HCL 100 MG TABLET (FP) PO SCH (22:40)
[2021-04-04] MEDS: MELATONIN 5 MG TABLETS PO SCH (22:40)
[2021-04-05] MEDS: PRENATAL VITAMINS W/ FOLIC ACID TABLET (FP) PO SCH (09:33)
[2021-04-05] MEDS: HYDROCHLOROTHIAZIDE 12.5 MG CAPSULE (FP) PO SCH (09:34)
[2021-04-05] MEDS: LISINOPRIL 10 MG TABLET PO SCH (09:34)
[2021-04-05] MEDS: FOLIC ACID 1 MG TABLET (FP) PO SCH (09:34)
[2021-04-05] MEDS: THIAMINE HCL 100 MG TABLET (FP) PO SCH (21:47)
[2021-04-05] MEDS: MELATONIN 5 MG TABLETS PO SCH (21:47)
[2021-04-06] MEDS: PRENATAL VITAMINS W/ FOLIC ACID TABLET (FP) PO SCH (10:17)
[2021-04-06] MEDS: HYDROCHLOROTHIAZIDE 12.5 MG CAPSULE (FP) PO SCH (10:17)
[2021-04-06] MEDS: FOLIC ACID 1 MG TABLET (FP) PO SCH (10:17)
[2021-04-06] MEDS: LISINOPRIL 10 MG TABLET PO SCH (10:17)
[2021-04-06] MEDS: hydrOXYzine PAMOATE 25 MG CAPSULE (FP) PO PRN (19:30)
[2021-04-06] MEDS: THIAMINE HCL 100 MG TABLET (FP) PO SCH (21:38)
[2021-04-06] MEDS: MELATONIN 5 MG TABLETS PO SCH (21:38)
[2021-04-07] MEDS: LISINOPRIL 10 MG TABLET PO SCH (10:27)
[2021-04-07] MEDS: PRENATAL VITAMINS W/ FOLIC ACID TABLET (FP) PO SCH (10:27)
[2021-04-07] MEDS: HYDROCHLOROTHIAZIDE 12.5 MG CAPSULE (FP) PO SCH (10:28)
[2021-04-07] MEDS: FOLIC ACID 1 MG TABLET (FP) PO SCH (10:28)
[2021-04-07] MEDS: THIAMINE HCL 100 MG TABLET (FP) PO SCH (22:23)
[2021-04-07] MEDS: MELATONIN 5 MG TABLETS PO SCH (22:23)
[2021-04-07] MEDS: FLUOCINONIDE 0.05% TOP OINT (60 GM TUBE) TP SCH (22:23)
[2021-04-08] MEDS: FOLIC ACID 1 MG TABLET (FP) PO SCH (10:15)
[2021-04-08] MEDS: PRENATAL VITAMINS W/ FOLIC ACID TABLET (FP) PO SCH (10:15)
[2021-04-08] MEDS: HYDROCHLOROTHIAZIDE 12.5 MG CAPSULE (FP) PO SCH (10:15)
[2021-04-08] MEDS: LISINOPRIL 10 MG TABLET PO SCH (10:15)
[2021-04-08] MEDS: FLUOCINONIDE 0.05% TOP OINT (60 GM TUBE) TP SCH ×2 (10:16→21:49)
[2021-04-08] MEDS: THIAMINE HCL 100 MG TABLET (FP) PO SCH (21:49)
[2021-04-08] MEDS: MELATONIN 5 MG TABLETS PO SCH (21:49)
[2021-04-09] MEDS: PRENATAL VITAMINS W/ FOLIC ACID TABLET (FP) PO SCH (09:54)
[2021-04-09] MEDS: HYDROCHLOROTHIAZIDE 12.5 MG CAPSULE (FP) PO SCH (09:54)
[2021-04-09] MEDS: LISINOPRIL 10 MG TABLET PO SCH (09:54)
[2021-04-09] MEDS: FOLIC ACID 1 MG TABLET (FP) PO SCH (09:54)
[2021-04-09] MEDS: FLUOCINONIDE 0.05% TOP OINT (60 GM TUBE) TP SCH ×2 (09:54→21:32)
[2021-04-09] MEDS: ALBUTEROL SO4 HFA INHALER IH PRN (10:08)
[2021-04-09] MEDS: MELATONIN 5 MG TABLETS PO SCH (21:32)
[2021-04-09] MEDS: THIAMINE HCL 100 MG TABLET (FP) PO SCH (21:32)
[2021-04-10] MEDS: FOLIC ACID 1 MG TABLET (FP) PO SCH (10:17)
[2021-04-10] MEDS: FLUOCINONIDE 0.05% TOP OINT (60 GM TUBE) TP SCH ×2 (10:17→23:17)
[2021-04-10] MEDS: LISINOPRIL 10 MG TABLET PO SCH (10:17)
[2021-04-10] MEDS: HYDROCHLOROTHIAZIDE 12.5 MG CAPSULE (FP) PO SCH (10:17)
[2021-04-10] MEDS: PRENATAL VITAMINS W/ FOLIC ACID TABLET (FP) PO SCH (10:17)
[2021-04-10] MEDS: ALBUTEROL SO4 HFA INHALER IH PRN (15:37)
[2021-04-10] MEDS: MELATONIN 5 MG TABLETS PO SCH (21:42)
[2021-04-10] MEDS: THIAMINE HCL 100 MG TABLET (FP) PO SCH (21:42)
[2021-04-10] MEDS: hydrOXYzine PAMOATE 25 MG CAPSULE (FP) PO PRN (21:43)
[2021-04-11] MEDS: PRENATAL VITAMINS W/ FOLIC ACID TABLET (FP) PO SCH (09:31)
[2021-04-11] MEDS: LISINOPRIL 10 MG TABLET PO SCH (09:31)
[2021-04-11] MEDS: FLUOCINONIDE 0.05% TOP OINT (60 GM TUBE) TP SCH ×2 (09:32→21:35)
[2021-04-11] MEDS: HYDROCHLOROTHIAZIDE 12.5 MG CAPSULE (FP) PO SCH (09:32)
[2021-04-11] MEDS: FOLIC ACID 1 MG TABLET (FP) PO SCH (09:32)
[2021-04-11] MEDS: ALBUTEROL SO4 HFA INHALER IH PRN (09:32)
[2021-04-11] MEDS ORDERED: diphenhydrAMINE HCL 25 MG CAPSULE (FP) PO PRN (13:04)
[2021-04-11] MEDS: IBUPROFEN 600 MG TABLET (FP) PO PRN (19:41)
[2021-04-11] MEDS: MELATONIN 5 MG TABLETS PO SCH (22:33)
[2021-04-11] MEDS: THIAMINE HCL 100 MG TABLET (FP) PO SCH (22:33)
[2021-04-12] MEDS: ALBUTEROL SO4 HFA INHALER IH PRN ×2 (10:26→18:46)
[2021-04-12] MEDS: PRENATAL VITAMINS W/ FOLIC ACID TABLET (FP) PO SCH (10:26)
[2021-04-12] MEDS: FOLIC ACID 1 MG TABLET (FP) PO SCH (10:27)
[2021-04-12] MEDS: FLUOCINONIDE 0.05% TOP OINT (60 GM TUBE) TP SCH ×2 (10:27→21:46)
[2021-04-12] MEDS: HYDROCHLOROTHIAZIDE 12.5 MG CAPSULE (FP) PO SCH (10:27)
[2021-04-12] MEDS: LISINOPRIL 10 MG TABLET PO SCH (10:27)
[2021-04-12] MEDS: IBUPROFEN 600 MG TABLET (FP) PO PRN ×2 (10:28→17:35)
[2021-04-12] MEDS: MELATONIN 5 MG TABLETS PO SCH (21:47)
[2021-04-12] MEDS: THIAMINE HCL 100 MG TABLET (FP) PO SCH (21:47)
[2021-04-13] MEDS: ALBUTEROL SO4 HFA INHALER IH PRN ×2 (01:20→11:19)
[2021-04-13] MEDS: FLUOCINONIDE 0.05% TOP OINT (60 GM TUBE) TP SCH ×2 (09:37→21:43)
[2021-04-13] MEDS: PRENATAL VITAMINS W/ FOLIC ACID TABLET (FP) PO SCH (09:37)
[2021-04-13] MEDS: LISINOPRIL 10 MG TABLET PO SCH (09:37)
[2021-04-13] MEDS: HYDROCHLOROTHIAZIDE 12.5 MG CAPSULE (FP) PO SCH (09:37)
[2021-04-13] MEDS: FOLIC ACID 1 MG TABLET (FP) PO SCH (09:37)
[2021-04-13] MEDS: IBUPROFEN 600 MG TABLET (FP) PO PRN ×2 (11:17→17:32)
[2021-04-13] MEDS: MELATONIN 5 MG TABLETS PO SCH (21:41)
[2021-04-13] MEDS: THIAMINE HCL 100 MG TABLET (FP) PO SCH (21:41)
[2021-04-14] MEDS: FOLIC ACID 1 MG TABLET (FP) PO SCH (10:31)
[2021-04-14] MEDS: LISINOPRIL 10 MG TABLET PO SCH (10:31)
[2021-04-14] MEDS: HYDROCHLOROTHIAZIDE 12.5 MG CAPSULE (FP) PO SCH (10:31)
[2021-04-14] MEDS: PRENATAL VITAMINS W/ FOLIC ACID TABLET (FP) PO SCH (10:31)
[2021-04-14] MEDS: IBUPROFEN 600 MG TABLET (FP) PO PRN ×2 (10:32→16:54)
[2021-04-14] MEDS: ALBUTEROL SO4 HFA INHALER IH PRN ×2 (10:34→23:07)
[2021-04-14] MEDS: FLUOCINONIDE 0.05% TOP OINT (60 GM TUBE) TP SCH ×2 (10:35→22:36)
[2021-04-14] MEDS: MELATONIN 5 MG TABLETS PO SCH (22:36)
[2021-04-14] MEDS: THIAMINE HCL 100 MG TABLET (FP) PO SCH (22:54)
[2021-04-14] MEDS ORDERED: PT OWN MED DRAWER 7, Y5N ONE (23:07)
[2021-04-15 06:47] VITALS: BP 152/98; PULSE 108; TEMP 97.2
[2021-04-15] MEDS: ALBUTEROL SO4 HFA INHALER IH PRN (07:34)
[2021-04-15] MEDS ORDERED: PT OWN MED DRAWER 7, Y5N ONE ×2 (07:34→09:36)
[2021-04-15] MEDS: PRENATAL VITAMINS W/ FOLIC ACID TABLET (FP) PO SCH (09:33)
[2021-04-15] MEDS: FOLIC ACID 1 MG TABLET (FP) PO SCH (09:33)
[2021-04-15] MEDS: LISINOPRIL 10 MG TABLET PO SCH (09:33)
[2021-04-15] MEDS: HYDROCHLOROTHIAZIDE 12.5 MG CAPSULE (FP) PO SCH (09:34)
[2021-04-15] MEDS: FLUOCINONIDE 0.05% TOP OINT (60 GM TUBE) TP SCH (09:34)
== END 2021-04-15 10:45 | disposition home or self-care (01) | DRG 772 ==
LOC: YASAS 12:08 → Y3W 12:11
PROVIDERS: ADMIT Allergy & Immunology; ATTEND Allergy & Immunology
PROC: HZ42ZZZ Group Counseling for Substance Abuse Treatment, Cognitive-Behavioral (ICD-10-PCS; principal; 2021-03-25)
DX: F10.20 Alcohol dependence, uncomplicated (principal); I10 Essential (primary) hypertension; E11.9 Type 2 diabetes mellitus without complications; J45.909 Unspecified asthma, uncomplicated; L30.9 Dermatitis, unspecified; K21.9 Gastro-esophageal reflux disease without esophagitis; R51.9 Headache, unspecified; E72.20 Disorder of urea cycle metabolism, unspecified; Z86.69 Personal history of other diseases of the nervous system and sense organs
CPT/HCPCS: 82140; 82962

== ENCOUNTER 2021-10-01 17:31 | Inpatient (IN) | payer OTHER ==
[2021-10-01 19:07] VITALS: BMI 26.2
[2021-10-01] MEDS ORDERED: IBUPROFEN 400 MG TABLET (FP) PO PRN (19:54)
[2021-10-01] MEDS ORDERED: MENTHOL/PHENOL 1 EACH UD MM PRN (19:54)
[2021-10-01] MEDS ORDERED: ACETAMINOPHEN 325 MG TABLET (FP) PO PRN ×2 (19:54)
[2021-10-01] MEDS ORDERED: BISMUTH SUBSALICYLATE 524 MG/30 ML PO PRN (19:54)
[2021-10-01] MEDS ORDERED: MAG HYDROX/AL HYDROX/SIMETH 30 ML UNIT-DOSE CUP PO PRN (19:54)
[2021-10-01] MEDS ORDERED: MAGNESIUM HYDROX 2400MG/30ML ORAL SUSPENSION 30 ML CUP PO PRN (19:54)
[2021-10-01] MEDS ORDERED: MAGNESIUM CITRATE 300 ML BOTTLE PO PRN (19:54)
[2021-10-01] MEDS ORDERED: ONDANSETRON *ODT* 4 MG TABLET SL PRN (19:54)
[2021-10-01] MEDS ORDERED: chlordiazePOXIDE HCL 25 MG CAPSULE PO PRN (19:57)
[2021-10-01] MEDS ORDERED: chlordiazePOXIDE HCL 25 MG CAPSULE PO ONE (19:57)
[2021-10-01] MEDS ORDERED: chlordiazePOXIDE HCL 25 MG CAPSULE ONE (20:11)
[2021-10-01] MEDS: chlordiazePOXIDE HCL 25 MG CAPSULE PO SCH (22:22)
[2021-10-01] MEDS: LISINOPRIL 10 MG TABLET PO SCH (22:22)
[2021-10-01] MEDS: hydrOXYzine PAMOATE 25 MG CAPSULE (FP) PO PRN (22:23)
[2021-10-01] MEDS: FLUOCINONIDE 0.05% TOP OINT (60 GM TUBE) TP SCH (22:45)
[2021-10-01] MEDS: THIAMINE HCL 100 MG TABLET (FP) PO SCH (22:46)
[2021-10-02] MEDS: chlordiazePOXIDE HCL 25 MG CAPSULE PO SCH ×4 (05:34→22:35)
[2021-10-02] MEDS: LISINOPRIL 10 MG TABLET PO SCH (10:13)
[2021-10-02] MEDS: PRENATAL VITAMINS W/ FOLIC ACID TABLET (FP) PO SCH (10:13)
[2021-10-02] MEDS: hydrOXYzine PAMOATE 25 MG CAPSULE (FP) PO PRN (10:13)
[2021-10-02] MEDS: FLUOCINONIDE 0.05% TOP OINT (60 GM TUBE) TP SCH ×2 (10:16→22:36)
[2021-10-02 10:35] LABS: HEMATOCRIT 39.5 % (35.4-49); HEMOGLOBIN 13.5 GM/dL (11.7-16.9); MCH 29.5 pg (25.7-33.7); MCHC 34.1 g/dl (32.0-35.9); MEAN CELL VOLUME 86.6 fl (80-96); PLATELET COUNT 332 10^3/uL (134-434); RBC 4.56 M/mm3 (4.00-5.60); RDW 16.3 % (11.9-15.9); WHITE BLOOD COUNT 5.1 K/mm3 (4.0-10.0)
[2021-10-02 10:37] LABS: CALCIUM 9.1 mg/dL (8.5-10.1)
[2021-10-02 10:38] LABS: ALBUMIN 3.2 g/dl (3.4-5.0); BLOOD UREA NITROGEN 12.2 mg/dL (7-18)
[2021-10-02 10:41] LABS: CREATININE 0.9 mg/dL (0.55-1.3)
[2021-10-02 10:43] LABS: BILIRUBIN,TOTAL 0.8 mg/dL (0.2-1); TOT PROT 6.5 g/dl (6.4-8.2)
[2021-10-02] MEDS: HYDROCHLOROTHIAZIDE 12.5 MG CAPSULE (FP) PO SCH (13:11)
[2021-10-02] MEDS: THIAMINE HCL 100 MG TABLET (FP) PO SCH (22:34)
[2021-10-02] MEDS: MOMETASONE FUROATE 220 MCG/IH INHALER IH SCH (22:36)
[2021-10-02] MEDS: MELATONIN 5 MG TABLETS PO PRN (22:36)
[2021-10-03] MEDS: chlordiazePOXIDE HCL 25 MG CAPSULE PO SCH ×4 (05:10→23:01)
[2021-10-03] MEDS ORDERED: FAMOTIDINE 20 MG TABLET PO PRN (09:42)
[2021-10-03] MEDS: PRENATAL VITAMINS W/ FOLIC ACID TABLET (FP) PO SCH (10:22)
[2021-10-03] MEDS: LISINOPRIL 10 MG TABLET PO SCH (10:22)
[2021-10-03] MEDS: FLUOCINONIDE 0.05% TOP OINT (60 GM TUBE) TP SCH ×2 (10:26→23:01)
[2021-10-03] MEDS: HYDROCHLOROTHIAZIDE 12.5 MG CAPSULE (FP) PO SCH (12:26)
[2021-10-03] MEDS: hydrOXYzine PAMOATE 25 MG CAPSULE (FP) PO PRN (12:55)
[2021-10-03] MEDS: MOMETASONE FUROATE 220 MCG/IH INHALER IH SCH (23:00)
[2021-10-03] MEDS: THIAMINE HCL 100 MG TABLET (FP) PO SCH (23:01)
[2021-10-03] MEDS: MELATONIN 5 MG TABLETS PO PRN (23:23)
[2021-10-04] MEDS ORDERED: chlordiazePOXIDE HCL 10 MG CAPSULE PO PRN
[2021-10-04] MEDS: chlordiazePOXIDE HCL 10 MG CAPSULE PO SCH ×4 (05:38→23:26)
[2021-10-04] MEDS: FLUOCINONIDE 0.05% TOP OINT (60 GM TUBE) TP SCH ×2 (10:10→23:24)
[2021-10-04] MEDS: PRENATAL VITAMINS W/ FOLIC ACID TABLET (FP) PO SCH (11:04)
[2021-10-04] MEDS: HYDROCHLOROTHIAZIDE 12.5 MG CAPSULE (FP) PO SCH (11:16)
[2021-10-04] MEDS: LISINOPRIL 10 MG TABLET PO SCH (11:16)
[2021-10-04] MEDS: MELATONIN 5 MG TABLETS PO PRN (23:24)
[2021-10-04] MEDS: THIAMINE HCL 100 MG TABLET (FP) PO SCH (23:26)
[2021-10-04] MEDS: MOMETASONE FUROATE 220 MCG/IH INHALER IH SCH (23:27)
[2021-10-05] MEDS ORDERED: chlordiazePOXIDE HCL 10 MG CAPSULE PO SCH (05:00)
[2021-10-05 09:16] VITALS: BP 126/88; PULSE 99; TEMP 97.7
[2021-10-05] MEDS: HYDROCHLOROTHIAZIDE 12.5 MG CAPSULE (FP) PO SCH (10:22)
[2021-10-05] MEDS: LISINOPRIL 10 MG TABLET PO SCH (10:22)
[2021-10-05] MEDS: hydrOXYzine PAMOATE 25 MG CAPSULE (FP) PO PRN (10:22)
[2021-10-05] MEDS: PRENATAL VITAMINS W/ FOLIC ACID TABLET (FP) PO SCH (10:22)
[2021-10-05] MEDS: FLUOCINONIDE 0.05% TOP OINT (60 GM TUBE) TP SCH (10:23)
[2021-10-06] MEDS ORDERED: chlordiazePOXIDE HCL 10 MG CAPSULE PO ONE (05:00)
== END 2021-10-05 10:25 | disposition home or self-care (01) | DRG 774 ==
LOC: YASAS 17:31 → Y6N 20:24
PROVIDERS: ADMIT Allergy & Immunology; ATTEND Allergy & Immunology
PROC: HZ2ZZZZ Detoxification Services for Substance Abuse Treatment (ICD-10-PCS; principal; 2021-10-01)
DX: F10.230 Alcohol dependence with withdrawal, uncomplicated (principal); F14.10 Cocaine abuse, uncomplicated; F10.24 Alcohol dependence with alcohol-induced mood disorder; F39 Unspecified mood [affective] disorder; F41.9 Anxiety disorder, unspecified; F32.9 Major depressive disorder, single episode, unspecified; I10 Essential (primary) hypertension; J45.20 Mild intermittent asthma, uncomplicated; K21.9 Gastro-esophageal reflux disease without esophagitis; E11.9 Type 2 diabetes mellitus without complications; Z86.2 Personal history of diseases of the blood and blood-forming organs and certain disorders involving the immune mechanism; Z87.891 Personal history of nicotine dependence
CPT/HCPCS: 36415; 80053; 85027; 86780; 93005; 93010; C9803; U0003; U0005

== ENCOUNTER 2022-05-21 14:17 | Inpatient (IN) | payer OTHER ==
[2022-05-21 15:46] VITALS: BMI 24.3
[2022-05-21] MEDS ORDERED: IBUPROFEN 400 MG TABLET (FP) PO PRN (21:26)
[2022-05-21] MEDS ORDERED: ONDANSETRON *ODT* 4 MG TABLET SL PRN (21:26)
[2022-05-21] MEDS ORDERED: MAGNESIUM HYDROX 2400MG/30ML ORAL SUSPENSION 30 ML CUP PO PRN (21:26)
[2022-05-21] MEDS ORDERED: IBUPROFEN 600 MG TABLET (FP) PO PRN (21:26)
[2022-05-21] MEDS ORDERED: NALOXONE HCL (KLOXXADO) 8 MG SPRAY NS PRN (21:26)
[2022-05-21] MEDS ORDERED: DICYCLOMINE HCL 10 MG CAPSULE PO PRN (21:26)
[2022-05-21] MEDS ORDERED: METHOCARBAMOL 500 MG TABLET PO PRN (21:26)
[2022-05-21] MEDS ORDERED: BENZOCAINE/MENTHOL (CHLORASEPTIC ) LOZENGE MM PRN (21:26)
[2022-05-21] MEDS ORDERED: MAG HYDROX/AL HYDROX/SIMETH 30 ML UNIT-DOSE CUP PO PRN (21:26)
[2022-05-21] MEDS ORDERED: MAGNESIUM CITRATE 300 ML BOTTLE PO PRN (21:26)
[2022-05-21] MEDS ORDERED: LOPERAMIDE HCL 2 MG CAPSULE PO PRN (21:26)
[2022-05-21] MEDS ORDERED: ACETAMINOPHEN 325 MG TABLET (FP) PO PRN (21:26)
[2022-05-21] MEDS ORDERED: ALBUTEROL SO4 HFA INHALER IH PRN (21:33)
[2022-05-21] MEDS: MELATONIN 5 MG TABLETS PO SCH (22:25)
[2022-05-21] MEDS: THIAMINE HCL 100 MG TABLET (FP) PO SCH (22:25)
[2022-05-21] MEDS: chlordiazePOXIDE HCL 25 MG CAPSULE PO SCH (22:25)
[2022-05-22] MEDS: chlordiazePOXIDE HCL 25 MG CAPSULE PO SCH ×4 (06:00→22:53)
[2022-05-22] MEDS ORDERED: MOMETASONE FUROATE 220 MCG/IH INHALER IH PRN (09:35)
[2022-05-22] MEDS: HYDROCHLOROTHIAZIDE 12.5 MG CAPSULE (FP) PO SCH (10:16)
[2022-05-22] MEDS: PRENATAL VITAMINS W/ FOLIC ACID TABLET (FP) PO SCH (10:16)
[2022-05-22] MEDS: LISINOPRIL 10 MG TABLET PO SCH (10:16)
[2022-05-22] MEDS: FAMOTIDINE 20 MG TABLET PO SCH (10:16)
[2022-05-22 10:51] LABS: CALCIUM 9.2 mg/dL (8.5-10.1)
[2022-05-22 10:52] LABS: ALBUMIN 3.6 g/dl (3.4-5.0); BLOOD UREA NITROGEN 18.5 mg/dL (7-18)
[2022-05-22 10:53] LABS: HEMATOCRIT 40.9 % (35.4-49); HEMOGLOBIN 14.1 GM/dL (11.7-16.9); MCH 30.4 pg (25.7-33.7); MCHC 34.4 g/dl (32.0-35.9); MEAN CELL VOLUME 88.4 fl (80-96); MEAN PLT VOLUME 7.9 fl (7.5-11.1); PLATELET COUNT 411 10^3/uL (134-434); RBC 4.63 M/mm3 (4.00-5.60); RDW 17.5 % (11.9-15.9); WHITE BLOOD COUNT 8.2 K/mm3 (4.0-10.0)
[2022-05-22 10:55] LABS: BILIRUBIN,TOTAL 0.5 mg/dL (0.2-1); TOT PROT 6.8 g/dl (6.4-8.2)
[2022-05-22] MEDS: BISMUTH SUBSALICYLATE 524 MG/30 ML PO PRN (15:34)
[2022-05-22] MEDS: ACETAMINOPHEN 325 MG TABLET (FP) PO PRN (18:31)
[2022-05-22] MEDS: MELATONIN 5 MG TABLETS PO SCH (22:53)
[2022-05-22] MEDS: THIAMINE HCL 100 MG TABLET (FP) PO SCH (22:54)
[2022-05-23] MEDS: chlordiazePOXIDE HCL 25 MG CAPSULE PO SCH ×4 (05:26→22:25)
[2022-05-23] MEDS: ACETAMINOPHEN 325 MG TABLET (FP) PO PRN ×3 (06:56→20:41)
[2022-05-23 09:58] LABS: BLOOD UREA NITROGEN 22.2 mg/dL (7-18)
[2022-05-23] MEDS: PRENATAL VITAMINS W/ FOLIC ACID TABLET (FP) PO SCH (10:03)
[2022-05-23] MEDS: HYDROCHLOROTHIAZIDE 12.5 MG CAPSULE (FP) PO SCH (10:03)
[2022-05-23] MEDS: LISINOPRIL 10 MG TABLET PO SCH (10:03)
[2022-05-23] MEDS: FAMOTIDINE 20 MG TABLET PO SCH (10:03)
[2022-05-23] MEDS: chlordiazePOXIDE HCL 25 MG CAPSULE PO PRN ×2 (13:11→19:21)
[2022-05-23] MEDS: BISMUTH SUBSALICYLATE 524 MG/30 ML PO PRN (14:50)
[2022-05-23] MEDS: THIAMINE HCL 100 MG TABLET (FP) PO SCH (22:24)
[2022-05-23] MEDS: MELATONIN 5 MG TABLETS PO SCH (22:24)
[2022-05-24] MEDS ORDERED: chlordiazePOXIDE HCL 10 MG CAPSULE PO PRN
[2022-05-24] MEDS: chlordiazePOXIDE HCL 10 MG CAPSULE PO SCH ×4 (05:49→22:00)
[2022-05-24] MEDS: HYDROCHLOROTHIAZIDE 12.5 MG CAPSULE (FP) PO SCH (10:23)
[2022-05-24] MEDS: PRENATAL VITAMINS W/ FOLIC ACID TABLET (FP) PO SCH (10:23)
[2022-05-24] MEDS: LISINOPRIL 10 MG TABLET PO SCH (10:23)
[2022-05-24] MEDS: FAMOTIDINE 20 MG TABLET PO SCH (10:23)
[2022-05-24] MEDS: ACETAMINOPHEN 325 MG TABLET (FP) PO PRN (13:10)
[2022-05-24] MEDS: hydrOXYzine PAMOATE 25 MG CAPSULE (FP) PO PRN (14:36)
[2022-05-24] MEDS: MELATONIN 5 MG TABLETS PO SCH (21:54)
[2022-05-24] MEDS: THIAMINE HCL 100 MG TABLET (FP) PO SCH (21:54)
[2022-05-25] MEDS: chlordiazePOXIDE HCL 10 MG CAPSULE PO SCH ×2 (06:05→19:03)
[2022-05-25] MEDS: hydrOXYzine PAMOATE 25 MG CAPSULE (FP) PO PRN (06:06)
[2022-05-25 06:16] VITALS: RESP 18
[2022-05-25] MEDS: FAMOTIDINE 20 MG TABLET PO SCH (10:37)
[2022-05-25] MEDS: HYDROCHLOROTHIAZIDE 12.5 MG CAPSULE (FP) PO SCH (10:37)
[2022-05-25] MEDS: PRENATAL VITAMINS W/ FOLIC ACID TABLET (FP) PO SCH (10:37)
[2022-05-25] MEDS: LISINOPRIL 10 MG TABLET PO SCH (10:37)
[2022-05-25] MEDS: MELATONIN 5 MG TABLETS PO SCH (22:01)
[2022-05-25] MEDS: THIAMINE HCL 100 MG TABLET (FP) PO SCH (22:01)
[2022-05-26] MEDS ORDERED: chlordiazePOXIDE HCL 10 MG CAPSULE PO ONE (05:00)
[2022-05-26] MEDS: HYDROCHLOROTHIAZIDE 12.5 MG CAPSULE (FP) PO SCH (10:46)
[2022-05-26] MEDS: LISINOPRIL 10 MG TABLET PO SCH (10:46)
[2022-05-26] MEDS: PRENATAL VITAMINS W/ FOLIC ACID TABLET (FP) PO SCH (10:46)
[2022-05-26] MEDS: FAMOTIDINE 20 MG TABLET PO SCH (10:46)
[2022-05-26] MEDS: ACETAMINOPHEN 325 MG TABLET (FP) PO PRN (10:58)
[2022-05-26 15:02] VITALS: BP 106/77; PULSE 84; TEMP 96.9
== END 2022-05-26 17:00 | disposition home or self-care (01) | DRG 896 ==
LOC: YASAS 14:17 → Y3N 21:38
PROVIDERS: ADMIT Allergy & Immunology; ATTEND Surgery
PROC: HZ2ZZZZ Detoxification Services for Substance Abuse Treatment (ICD-10-PCS; principal; 2022-05-21)
DX: F10.230 Alcohol dependence with withdrawal, uncomplicated (principal); U07.1 COVID-19; F10.24 Alcohol dependence with alcohol-induced mood disorder; I10 Essential (primary) hypertension; K21.9 Gastro-esophageal reflux disease without esophagitis; J45.20 Mild intermittent asthma, uncomplicated; R56.9 Unspecified convulsions; Z62.810 Personal history of physical and sexual abuse in childhood; S09.90XA Unspecified injury of head, initial encounter; S59.901A Unspecified injury of right elbow, initial encounter; W01.198A Fall on same level from slipping, tripping and stumbling with subsequent striking against other object, initial encounter; Y92.230 Patient room in hospital as the place of occurrence of the external cause; Z91.81 History of falling
CPT/HCPCS: 36415; 80053; 82947; 83036; 84520; 85027; 86780; C9803-CS; U0003; U0005

== ENCOUNTER 2022-05-25 14:36 | Emergency (ER) | payer OTHER ==
[2022-05-25 14:59] VITALS: BP 126/60; PULSE 94; RESP 20; BMI 24.0
[2022-05-25 15:38] VITALS: TEMP 98.7
[2022-05-25] MEDS ORDERED: chlordiazePOXIDE HCL 10 MG CAPSULE PO ONE (17:32)
[2022-05-25] MEDS ORDERED: chlordiazePOXIDE HCL 10 MG CAPSULE ONE (17:46)
[2022-05-25] MEDS ORDERED: ACETAMINOPHEN 325 MG TABLET (FP) PO ONE (18:05)
[2022-05-25] MEDS ORDERED: ACETAMINOPHEN 325 MG TABLET (FP) ONE (18:09)
== END 2022-05-25 20:41 | disposition short-term general hospital (02) ==
LOC: JER 14:36
DX: S09.90XA Unspecified injury of head, initial encounter (principal); F10.239 Alcohol dependence with withdrawal, unspecified; W01.0XXA Fall on same level from slipping, tripping and stumbling without subsequent striking against object, initial encounter
CPT/HCPCS: 70450-TC; 72125-TC; 99285-25